=== PATIENT | male | born 1985 | race Caucasian/White ===

== ENCOUNTER 2018-03-23 19:02 | Emergency (ER) | payer OTHER ==
[2018-03-23] MEDS: MORPHINE 2 MG/ML 1ML SYRINGE (J2270) IV (20:06)
[2018-03-23] MEDS: diphenhydrAMINE INJ 50MG/ML VIAL (J1200) IV (20:06)
[2018-03-23] MEDS: NS 1,000 ML IV (20:07)
[2018-03-23] MEDS: KETOROLAC 30 MG/ML VIAL (J1885) IV (21:23)
== END 2018-03-23 21:32 | disposition home or self-care (01) ==
LOC: M ED 19:02
DX: R51 Headache (principal); F90.9 Attention-deficit hyperactivity disorder, unspecified type; F41.9 Anxiety disorder, unspecified; I95.1 Orthostatic hypotension; G43.109 Migraine with aura, not intractable, without status migrainosus; R41.3 Other amnesia; Z79.899 Other long term (current) drug therapy
CPT/HCPCS: J1200